=== PATIENT | male | born 1955 | race Caucasian/White ===

== ENCOUNTER → 2022-03-06 | Outpatient (CLI) | payer BC ==
--- NOTE | 2022-03-07 09:07 | XR ---
EXAMINATION TYPE: XR Hip Complete 2 views RT DATE OF EXAM: 03/06/2022 Comparison: None Clinical History: 66-year-old male [id number] RT HIP PAIN Findings: There is end-stage [id number] degenerative change at the right hip with complete loss of superolate ral cartilage and joint space. Extensive subchondral sclerosis and marginal spurring. There is chroni c wtfn-os-mrra remodeling along the weightbearing aspect. No acute fracture or dislocation. Suspect v asectomy clips. Impression: End-stage [id number] right hip OA.
== END | disposition home or self-care (01) ==
LOC: RADXRYALE 16:05
PROVIDERS: ATTEND Physician Assistant
DX: M16.11 Unilateral primary osteoarthritis, right hip (principal)
CPT/HCPCS: 73502

== ENCOUNTER → 2024-09-10 | Outpatient (CLI) | payer BC ==
--- NOTE | 2024-09-10 10:39 | US ---
EXAMINATION TYPE: US scrotum with doppler. DATE OF EXAM: 09/10/2024 COMPARISON: NONE CLINICAL INDICATION: Male, 69 years old with history of N50.811 RIGHT TESTICULAR PAIN; Pt states he t hinks the right side of his scrotum has gotten bigger TECHNIQUE: Grayscale, color Doppler and spectral Doppler imaging of the scrotum. FINDINGS: EXAM MEASUREMENTS: TESTICLES: Right Testicle: 5.1 x 3.3 x 2.9 cm Left Testicle: 4.8 x 2.9 x 3.2 cm EPIDIDYMIS HEAD: Right Epididymis: 0.9 cm Left Epididymis: 1.1 cm Doppler performed to assess for testicular vascularity; good bilateral color flow and spectral wavefo haresh are seen. There is no evidence of testicular torsion. Presence of hydroceles: large bilaterally Presence of varicoceles: no Large bilateral hydroceles with debris. IMPRESSION: 1. Bilateral large hydroceles with debris. 2. No evidence for intratesticular mass. 3. Appropriate arterial and venous spectral waveforms to the testes. No evidence for testicular tors ion. [facility], , 09/10/2024 10:36 AM
== END | disposition home or self-care (01) ==
LOC: RADUSWWP 09:50
PROVIDERS: ATTEND Family Medicine
DX: N43.3 Hydrocele, unspecified (principal); N50.811 Right testicular pain
CPT/HCPCS: 76870; 93975